=== PATIENT | female | born 1980 | race Caucasian/White ===

== ENCOUNTER → 2020-06-12 | Outpatient (CLI) | payer OTHER ==
[~2020-06-12] MED LIST: IBUP-1222 PO; OXYC1TAB14 PO; PREN1TAB56 PO
== END | disposition home or self-care (01) ==
LOC: STAR 11:55
PROVIDERS: ATTEND Obstetrics & Gynecology
DX: Z20.822 Contact with and (suspected) exposure to COVID-19 (principal)
CPT/HCPCS: 87635

== ENCOUNTER 2020-06-17 09:44 | Inpatient (IN) | payer OTHER ==
[~2020-06-17] VITALS: Ht 167.6 cm; Wt 82.2 kg
[2020-06-17] MEDS ORDERED: NEWBORN KIT ONE (10:13)
[2020-06-17] MEDS ORDERED: METOCLOPRAMIDE 5 MG/ML, 2ML ONE (10:13)
[2020-06-17] MEDS ORDERED: OXYTOCIN 30U/ 0.9% NaCL 500ML 500 ML ONE (10:13)
[2020-06-17] MEDS ORDERED: MISOPROSTOL 200 MCG TABLET ONE (10:13)
[2020-06-17] MEDS ORDERED: SODIUM CITRATE/CITRIC ACID 15 ML UDC ONE (10:13)
[2020-06-17 10:22] VITALS: BP 136/84
[2020-06-17] MEDS ORDERED: hydrALAzine 20 MG/ML, 1ML IV PRN (10:30)
[2020-06-17] MEDS ORDERED: MEPERIDINE/PF 25MG/0.5ML IVPush PRN (10:30)
[2020-06-17] MEDS ORDERED: SODIUM CITRATE/CITRIC ACID 30 ML UDC PO ONE (10:30)
[2020-06-17] MEDS ORDERED: HYDROcodone/APAP 7.5-325MG/15ML UDC PO PRN (10:30)
[2020-06-17] MEDS ORDERED: PROMETHAZINE 25 MG/ML, 1ML IV PRN (10:30)
[2020-06-17] MEDS ORDERED: ONDANSETRON 2MG/ML, 2ML IVPush PRN (10:30)
[2020-06-17] MEDS ORDERED: LACTATED RINGERS 1,000 ML IVBOLUS ONE (10:30)
[2020-06-17] MEDS ORDERED: MIDAZOLAM 1 MG/ML, 2ML IV PRN (10:30)
[2020-06-17] MEDS ORDERED: EPHEDRINE 50 MG/ML, 1ML IVPush PRN (10:30)
[2020-06-17] MEDS ORDERED: LABETALOL 5MG/ML, 20ML IV PRN (10:30)
[2020-06-17] MEDS ORDERED: FENTANYL PF 100 MCG/2ML IV PRN (10:30)
[2020-06-17] MEDS ORDERED: LACTATED RINGERS 1,000 ML IV SCH (10:30)
[2020-06-17] MEDS ORDERED: METOPROLOL 1 MG/ML, 5ML IV PRN (10:30)
[2020-06-17] MEDS ORDERED: METOCLOPRAMIDE 5 MG/ML, 2ML IV ONE (10:30)
[2020-06-17] MEDS ORDERED: OXYcodone 5 MG/5 ML ORAL.SOL UDC PO PRN (10:30)
[2020-06-17] MEDS ORDERED: ALBUTEROL SULFATE 2.5 MG/3 ML NPPB PRN (10:30)
[2020-06-17] MEDS ORDERED: HYDROmorphone 2 MG/ML, 1ML IVPush PRN (10:30)
[2020-06-17] MEDS ORDERED: ONDANSETRON 2MG/ML, 2ML ONE (10:33)
[2020-06-17] MEDS ORDERED: PHENYLEPHRINE 10 MG/ML ONE (10:33)
[2020-06-17] MEDS ORDERED: CEFAZOLIN 1,000 MG ONE (10:33)
[2020-06-17] MEDS ORDERED: EPHEDRINE 50 MG/ML, 1ML ONE (10:33)
[2020-06-17] MEDS ORDERED: KETOROLAC 30 MG/1 ML ONE (10:33)
[2020-06-17] MEDS ORDERED: FENTANYL PF 100 MCG/2ML ONE (10:33)
[2020-06-17] MEDS ORDERED: OXYTOCIN 10 UNITS/ML, 1ML ONE (10:33)
[2020-06-17] MEDS ORDERED: DEXAMETHASONE 4 MG/ML, 1ML ONE (10:33)
[2020-06-17] MEDS ORDERED: HYDROmorphone 2 MG/ML, 1ML ONE (10:36)
[2020-06-17 10:45] LABS: BASOPHILS % (AUTO) 0 % (0-1); EOSINOPHILS % (AUTO) 3 % (1-7); LYMPHOCYTES % (AUTO) 12 % (22-44); MEAN CORPUSCULAR HEMOGLOBIN 27.8 pg (27.0-34.8); MEAN CORPUSCULAR HGB CONC 33.8 g/dL (32.4-35.8); MEAN PLATELET VOLUME 8.3 fL (7.4-10.4); MONOCYTES % (AUTO) 6 % (2-9); NEUTROPHILS % (AUTO) 79 % (42-75); PLATELET COUNT 141 x10^3/uL (130-400); RED BLOOD COUNT 3.77 x10^6/uL (3.82-5.3); RED CELL DISTRIBUTION WIDTH 14.7 % (9.6-15.2)
[2020-06-17 10:46] LABS: MD NO
[2020-06-17] MEDS ORDERED: FENTANYL/BUPIV./NS/PF 250 ML EPIDCONT ONE (11:07)
[2020-06-17] MEDS ORDERED: LIDOCAINE/PF 1.5% EPI 1:200K, 10 ML ONE (11:08)
[2020-06-17] MEDS ORDERED: BUPIVACAINE 0.25% ONE (11:08)
[2020-06-17] MEDS ORDERED: RHOGAM FROM BLOOD BANK 1 NOTE EA IM/IV ONE (12:00)
[2020-06-17] MEDS ORDERED: MISOPROSTOL 200 MCG TABLET PO PRN (12:00)
[2020-06-17] MEDS ORDERED: DIPH,PERTUSS(ACELL),TET VAC/PF NC IM-VACC PRN (12:00)
[2020-06-17] MEDS ORDERED: CALCIUM CARBONATE 500 MG TAB.CHEW PO PRN (12:00)
[2020-06-17] MEDS ORDERED: ONDANSETRON 2MG/ML, 2ML IV PRN (12:00)
[2020-06-17] MEDS ORDERED: MORPHINE SULFATE 4 MG/ML, 1ML IVPush PRN (12:00)
[2020-06-17] MEDS ORDERED: morphine SULFATE 10 MG/ML, 1ML IM PRN (12:00)
[2020-06-17] MEDS: LACTATED RINGERS 1,000 ML IV SCH ×4 (12:00→22:00)
[2020-06-17] MEDS ORDERED: MEASLES,MUMPS&RUBELLA VACC/PF 0.5 ML SQ-VACC PRN (12:00)
[2020-06-17] MEDS ORDERED: OXYcodone/APAP 5/325MG TABLET PO PRN (12:00)
[2020-06-17] MEDS ORDERED: ACETAMINOPHEN 325 MG TABLET PO PRN ×2 (12:00)
[2020-06-17] MEDS: OXYTOCIN 30U/ 0.9% NaCL 500ML 500 ML IV SCH ×2 (13:51→22:00)
[2020-06-17 14:45] VITALS: BP 126/83
[2020-06-17] MEDS: KETOROLAC 30 MG/1 ML IV SCH (18:30)
[2020-06-17] MEDS: OXYcodone/APAP 5/325MG TABLET PO PRN ×2 (19:29→23:43)
[2020-06-17 19:30] VITALS: BP 119/75
[2020-06-17 20:46] LABS: BASOPHILS % (AUTO) 0 % (0-1); EOSINOPHILS % (AUTO) 0 % (1-7); LYMPHOCYTES % (AUTO) 5 % (22-44); MEAN CORPUSCULAR HEMOGLOBIN 27.8 pg (27.0-34.8); MEAN CORPUSCULAR HGB CONC 33.4 g/dL (32.4-35.8); MEAN PLATELET VOLUME 8.5 fL (7.4-10.4); MONOCYTES % (AUTO) 4 % (2-9); NEUTROPHILS % (AUTO) 91 % (42-75); PLATELET COUNT 128 x10^3/uL (130-400); RED BLOOD COUNT 3.76 x10^6/uL (3.82-5.3); RED CELL DISTRIBUTION WIDTH 14.5 % (9.6-15.2)
[2020-06-17 20:50] LABS: MD NO
[2020-06-17 23:40] VITALS: BP 107/69
[2020-06-18] MEDS: KETOROLAC 30 MG/1 ML IV SCH ×4 (00:36→18:19)
[2020-06-18] MEDS: OXYcodone/APAP 5/325MG TABLET PO PRN ×4 (03:32→21:12)
[2020-06-18 03:40] VITALS: BP 117/77
[2020-06-18] MEDS: LACTATED RINGERS 1,000 ML IV SCH ×3 (04:00→12:00)
[2020-06-18 07:45] VITALS: BP 119/79
[2020-06-18] MEDS: SIMETHICONE 80 MG CHEW TAB PO PRN (07:47)
[2020-06-18] MEDS: PRENATAL VIT/IRON/FA 1 EACH TABLET PO SCH (07:47)
[2020-06-18] MEDS: DOCUSATE 100 MG CAPSULE PO PRN ×2 (07:47→19:17)
[2020-06-18] MEDS: OXYTOCIN 30U/ 0.9% NaCL 500ML 500 ML IV SCH (08:00)
[2020-06-18 19:15] VITALS: BP 127/79
[2020-06-19] MEDS: KETOROLAC 30 MG/1 ML IV SCH ×2 (00:18→06:18)
[2020-06-19] MEDS: OXYcodone/APAP 5/325MG TABLET PO PRN ×3 (01:07→09:00)
[2020-06-19 08:30] VITALS: BP 120/83
[2020-06-19] MEDS: PRENATAL VIT/IRON/FA 1 EACH TABLET PO SCH (08:59)
[2020-06-19] MEDS: DOCUSATE 100 MG CAPSULE PO PRN (08:59)
[2020-06-19] MEDS: SIMETHICONE 80 MG CHEW TAB PO PRN (08:59)
[2020-06-19] MEDS ORDERED: IBUPROFEN 600 MG TABLET PO PRN (16:00)
== END 2020-06-19 11:03 | disposition home or self-care (01) | DRG 788 ==
LOC: LDIP 09:44 → 2NW 14:40
PROVIDERS: ADMIT Obstetrics & Gynecology; ATTEND Obstetrics & Gynecology
PROC: 10D00Z1 Extraction of Products of Conception, Low, Open Approach (ICD-10-PCS; principal; 2020-06-17)
DX: O34.211 Maternal care for low transverse scar from previous cesarean delivery (principal); O40.3XX0 Polyhydramnios, third trimester, not applicable or unspecified; K66.0 Peritoneal adhesions (postprocedural) (postinfection); O69.89X0 Labor and delivery complicated by other cord complications, not applicable or unspecified; Z3A.39 39 weeks gestation of pregnancy; Z37.0 Single live birth; Z91.048 Other nonmedicinal substance allergy status
CPT/HCPCS: 36415; 85025; 86592; 86850; 86900; 87806; 90715; G0378; J0690; J1100; J1170; J1885; J2405; J3010; G0475; J2370; J2590; J2765; J7120